=== PATIENT | male | born 1985 | race Caucasian/White ===

== ENCOUNTER 2024-11-24 18:21 | Emergency (ER) | payer BC, SELFPAY ==
[2024-11-24 18:28] VITALS: BP 159/90
[2024-11-24 18:42] LABS: % Basophils 1.2 % (0-2); % Eosinophils 2.3 % (0-6); % Lymphocytes 38.6 % (20.5-51.1); % Monocytes 11.6 % (1.7-9.3); % Neutrophils 46.3 % (42.2-75.2); Absolute Basophils 0.1 10^3/uL (0-0.2); Absolute Eosinophils 0.1 10^3/uL (0-0.7); Absolute Monocytes 0.6 10^3/uL (0.1-0.6); Absolute Neutrophils 2.4 10^3/uL (1.4-6.5); Hematocrit 44.3 % (39.0-52.0); Mean Corp Hgb Conc. 33.9 g/dL (33.0-37.0); Mean Corpuscular Hgb 29.8 pg (27.0-31.0); Mean Corpuscular Volume 88.1 fL (80.0-94.0); Mean Platelet Volume 9.5 fL (7.4-10.4); Nucleated Red Blood Cells % 0 % (-); Platelet Count 199 10^3/uL (130-400); Red Blood Cell Count 5.03 10^6/uL (4.70-6.10); Red Cell Dist. Width 12.6 % (11.5-14.5); White Blood Cell Count 5.2 10^3/uL (4.8-10.8)
[2024-11-24 19:04] LABS: ALT (SGPT) 42 U/L (0-50); AST (SGOT) 31 U/L (17-59); Albumin 5.1 g/dl (3.5-5.0); Alkaline Phosphatase 47 U/L (38-126); Blood Urea Nitrogen 16 mg/dl (9-20); Calcium 9.3 mg/dl (8.4-10.2); Carbon Dioxide 26 mmol/L (22-30); Chloride 106 mmol/L (98-107); Glucose 101 mg/dl (70-99); Potassium 4.4 mmol/L (3.5-5.1); Sodium 140 mmol/L (135-145); Total Bilirubin 0.7 mg/dl (0.2-1.3); Total Protein 7.9 g/dl (6.3-8.2); eGFR > 60.00
[2024-11-24 19:08] LABS: Troponin I < 0.012 ng/ml
[2024-11-24 20:38] VITALS: BP 148/77
[2024-11-24 20:39] VITALS: BMI 23.0
--- NOTE | 2024-11-24 20:47 | ED.GENMED ---
History of Present Illness
General
Chief Complaint: Chest Pain
Source: patient
Exam Limitations: none
Time Seen by Provider: 11/24/24 20:31
History of Present Illness
History of Present Illness:
39yoM with no significant past medical history presenting with his for evaluation of chest tightness. He reports intermittent palpitations x several weeks which seems to be increasing. He reports feeling the sensation that his heart was
working harder than usual throughout the day today. He was sitting at his desk at work this evening around 3pm when he started to experience left sided chest tightness. Patient was seen at urgent care and was sent to the ED for evaluation.
Symptoms are improved but he still feels a sensation in his left lower chest. He denies any pleuritic pain, shortness of breath, syncope, vomiting. He exercises frequently and he denies any chest pain with activity. His only prescription
medication is finasteride which he takes for hair loss.
Phy Exam
General Physical Exam
General Presentation: well appearing and no apparent distress
General Skin: warm and dry
General Habitus: normal
General Mental: alert
ENT Exam
ENT Exam: normocephalic
Cardiovascular Exam
Cardiovascular Exam: regular rate/rhythm, no murmur and normal peripheral pulses
Pulmonary Exam
Pulmonary Exam: lungs clear, no respiratory distress, no rales, chest non tender, no crackles, no rhonchi and no wheezing
Neurological Exam
Neurological Exam: alert
[place] Coma Scale
Eye Opening: Spontaneous
Verbal Response: Oriented
Motor Response: Obeys Commands
GCS Total Score: 15
Skin Exam
Skin Exam: normal color and warm/dry
Psychiatric Exam
Psychiatric Exam: normal mood/affect
Scores
Heart Score for Chest Pain Patients
STEMI patient?: No
History: Slightly or Non-Suspicious
ECG: Normal
Age: </= 45 years
Risk Factors: No Risk Factors
Troponin: </= Normal Limit
Heart Score for Chest Pain Patients: 0
Heart Score Risk: 2.5% MACE over next 6 weeks
Course
Orders/Labs/Results
Orders:
Orders
11/24/24 18:22
Electrocardiogram (*1) Urgent
Reason for Study: Chest Pain
EKG- Treatment ONCE
11/24/24 18:37
CMP [Comprehensive Metabolic Panel] Urgent
Complete Blood Count/With Diff Urgent
TSH Urgent
Comment: ADD ON
Troponin I Urgent
11/24/24 20:31
Add On- LAB Urgent
Tests Added?: TSH
11/24/24 21:10
Electrocardiogram (*1) Urgent
Reason for Study: Chest Pain
EKG- Treatment ONCE
CR Chest - 2 Views Urgent
Comment:
Reason For Exam: CP
11/24/24 21:22
Troponin I Urgent
Abnormal Lab Results
11/24/24
18:37
Monocytes % 11.6 H %
(1.7-9.3)
Glucose 101 H mg/dl
(70-99)
Albumin 5.1 H g/dl
(3.5-5.0)
11/24/24 18:37
11/24/24 18:37
Vital Signs
Initial and Last Documented VS:
Initial Vital Signs
Temp Pulse Resp BP Pulse Ox
98.6 F 69 18 159/90 100
11/24/24 18:28 11/24/24 18:28 11/24/24 18:28 11/24/24 18:28 11/24/24 18:28
Last Documented Vital Signs
Temp Pulse Resp BP Pulse Ox
98.6 F 67 15 123/75 99
11/24/24 18:28 11/24/24 22:45 11/24/24 22:45 11/24/24 22:00 11/24/24 23:06
MDM/Problems Addressed
Differential Diagnosis Includes:
39yoM here with increasing HR today. Also started with chest tightness this afternoon. Sent here by urgent care. He is mildly hypertensive in triage with otherwise stable vital signs. He is well-appearing in no acute distress. Exam reassuring.
Differential diagnosis includes but is not limited to: Arrhythmia, musculoskeletal pain, thyroid dysfunction, electrolyte abnormality, less likely ACS
Initial ED plan: Cardiac labs and EKG obtained in triage. EKG shows normal sinus rhythm without ischemic changes or ectopy. Troponin within normal limits. Will check TSH, repeat EKG/troponin, and chest x-ray.
*EKG
Interpreted by ED Provider?: Yes
EKG Intrepretation Date: 11/24/24
Heart Rate: 68
Rate: normal
Rhythm: sinus
[place]: normal axis
Interval: normal interval
QRS Pattern: normal QRS
Ischemia: no ischemia
*Critical Care Note
Total Time (30-74mins, 75-104mins- exclusive of procedures): Not Applicable
Update Note
Update Note:
TSH within normal limits. Repeat EKG and troponin unchanged. Chest x-ray is clear. No telemetry events during ED stay. No indication for hospitalization. He has an appointment scheduled with his PCP for tomorrow. ED return precautions
reviewed. Patient discharged in stable condition.
ED Attending Note
-
Portions of this chart may have been created with voice recognition software.� Occasional wrong word or��sound alike� substitutions may have occurred due to the inherent limitations of voice recognition software.
Discharge Plan
Departure
Patient Disposition: Home (Routine Discharge)
Date of Disposition: 11/24/24
Time of Disposition: 22:51
Patient with high blood pressure during this ER visit?: No
Discharge Problem:
Palpitations, Chest tightness
Instructions: Palpitations - ED discharge instructions
Referrals:
Jalen Mroales MD [Family Provider, Family Practice]
Activity Restrictions/Additional Instructions:
Drink plenty of fluids and stay hydrated. Avoid alcohol and caffeine.
Please follow-up with your doctor tomorrow as previously scheduled. Return to the ER with any new or worsening symptoms.
Interventions
Interventions:
*Risk Screen - Suicide Last Done: 11/24/24 18:28
*General Assessment Last Done: 11/24/24 18:28
*Neglect/Abuse Screening Last Done: 11/24/24 20:39
*ED- Fall Risk Assessment Last Done: 11/24/24 20:39
*ED COVID-19 Vaccine History Last Done: 11/24/24 20:39
*Nursing Disposition Last Done: 11/24/24 23:06
ED- Cardiac Assessment Last Done: 11/24/24 20:39
Discharge Date and Time
Discharge Date/Time: 11/24/24 23:08
Print Language: ANDORRAN
[2024-11-24 21:00] VITALS: BP 141/82
[2024-11-24 21:45] LABS: TSH 1.45 uIU/ml (0.47-4.68)
[2024-11-24 22:00] VITALS: BP 123/75
[2024-11-24 22:01] LABS: Troponin I < 0.012 ng/ml
== END 2024-11-24 23:08 | disposition home or self-care (01) ==
LOC: EMR 18:21
PROVIDERS: Emergency Medicine; Physician Assistant; EMERGENCY PHYSICIAN Emergency Medicine; FAMILY PHYSICIAN Family Medicine
DX: R00.2 Palpitations (principal); R07.89 Other chest pain
CPT/HCPCS: 99285; 71046; 80053; 84443; 84484; 85025; 93005

== ENCOUNTER → 2025-02-03 16:56 | Outpatient (REF) | payer BC, SELFPAY | LOC: RAD 16:56 | PROVIDERS: ATTENDING PHYSICIAN Physician Assistant Medical; FAMILY PHYSICIAN Family Medicine | DX: R07.89 Other chest pain (principal) | CPT/HCPCS: 71260; 74177; Q9967 ==